=== PATIENT | male | born 1985 | race Caucasian/White ===

== ENCOUNTER 2017-12-15 13:17 | Emergency (ER) | payer SELFPAY ==
[2017-12-15] MEDS ORDERED: Proparacaine 0.5% Opth 15 ML BOT ONE (13:34)
[2017-12-15] MEDS ORDERED: Fluorescein Opthalmic Strip ONE (13:34)
== END 2017-12-15 14:23 | disposition home or self-care (01) ==
LOC: ERS 13:17
DX: S05.01XA Injury of conjunctiva and corneal abrasion without foreign body, right eye, initial encounter (principal); F17.210 Nicotine dependence, cigarettes, uncomplicated; X58.XXXA Exposure to other specified factors, initial encounter
CPT/HCPCS: 99406

== ENCOUNTER 2018-09-09 21:53 | Emergency (ER) | payer SELFPAY ==
[2018-09-09] MEDS ORDERED: Dexamethasone 4 mg/ml Vial ONE (22:45)
[2018-09-09] MEDS ORDERED: hydrOXYzine 25 MG TAB PO SCH (23:00)
== END 2018-09-09 23:10 | disposition home or self-care (01) ==
LOC: ERS 21:53
DX: L23.7 Allergic contact dermatitis due to plants, except food (principal); F17.210 Nicotine dependence, cigarettes, uncomplicated
CPT/HCPCS: 96372; J1100

== ENCOUNTER 2019-06-24 23:27 | Inpatient (IN) | payer SELFPAY ==
[2019-06-24] MEDS ORDERED: Midazolam HCl 5 mg/ml Vial ONE ×3 (23:33→23:48)
[2019-06-24] MEDS ORDERED: Haloperidol Lactate 5 MG/ML VIAL ONE (23:37)
[2019-06-24 23:50] LABS: #Basophils 0.1 thou/uL (0.0-0.2); #Eosinphils 0.2 thou/uL (0.0-0.7); #Neutrophils 8.3 thou/uL (1.40-6.50); %Basophils 0.4 % (0.0-1.0); %Eosinophils 1.8 % (0.0-10.0); %Lymphocytes 29.3 % (21.0-51.0); %Monocytes 7.5 % (0.0-10.0); Hemoglobin 15.2 g/dL (14.0-18.0); Mean Corpuscular HGB CONC 32.9 g/dL (32.0-36.0); Mean Corpuscular Hemoglobin 27.6 pg (27.0-31.0); Mean Platelet Volume 7.9 fL (7.4-10.4); Platelet Count 428 thou/uL (130-400); Red Blood Cell (RBC) Count 5.49 mill/uL (4.70-6.10); White Blood Cell (WBC) Count 13.6 thou/uL (4.8-10.8)
[2019-06-24] MEDS ORDERED: Midazolam HCl 2 mg/2 ml Vial ONE (23:56)
[2019-06-24 23:57] LABS: INR-International Normal Ratio 0.9; Prothrombin Time 11.8 SEC (12.0-14.7)
[2019-06-25 00:17] LABS: ALT (SGPT) 17 U/L (8-55); AST (SGOT) 17 U/L (5-34); Acetaminophen Less than 6.0 mcg/mL (10.0-30.0); Albumin 4.8 g/dL (3.5-5.0); Alcohol Less than 10 mg/dL (Less than 10); Alkaline Phosphatase 77 U/L (40-150); Anion Gap 17 mmol/L (10-20); BUN (Urea Nitrogen) 13 mg/dL (8.9-20.6); Bilirubin, Total 0.3 mg/dL (0.2-1.2); CK (CPK) 109 U/L (30-200); Calc. Creatinine Clearance 0 mL/min (70-130); Calcium 10.4 mg/dL (7.8-10.44); Carbon Dioxide 24 mmol/L (22-29); Chloride 103 mmol/L (98-107); Estimated GFR-MDRD 66; Globulin 3.4 g/dL (2.4-3.5); Glucose 104 mg/dL (70-105); Lipase 27 U/L (8-78); Potassium 4.3 mmol/L (3.5-5.1); Protein, Total 8.2 g/dL (6.0-8.3); Salicylate Less than 8.0 mg/dL (15.0-30.0); Sodium 140 mmol/L (136-145)
[2019-06-25 00:27] LABS: Bilirubin Negative (Negative); Blood, Urine Negative (Negative); Clarity Clear (Clear); Glucose, Urine (Dipstick) Normal (Negative); Leukocyte Negative Leu/uL (Negative); Nitrite Negative (Negative); Protein, Urine (Dipstick) Negative (Neg-Trace); Urobilinogen Normal mg/dL (Less than 2)
[2019-06-25] MEDS ORDERED: Midazolam HCl 2 mg/2 ml Vial ONE (00:55)
[2019-06-25] MEDS ORDERED: Midazolam HCl 5 mg/ml Vial ONE (01:19)
[2019-06-25] MEDS ORDERED: Senokot S 8.6-50 MG TAB PO PRN (01:20)
[2019-06-25] MEDS ORDERED: Acetaminophen 325 MG TAB PO PRN (01:20)
[2019-06-25] MEDS ORDERED: Lorazepam 2 MG/ML VIAL SLOW IVP PRN (01:42)
[2019-06-25] MEDS: Sodium Chloride 0.9% 1,000 ML IV SCH ×3 (03:32→14:57)
[2019-06-25 03:45] LABS: #Lymphocytes 1.5 thou/uL (1.20-3.40); #Monocytes 0.9 thou/uL (0.11-0.59); #Neutrophils 13.1 thou/uL (1.40-6.50); %Eosinophils 0.2 % (0.0-10.0); %Lymphocytes 9.5 % (21.0-51.0); %Monocytes 5.6 % (0.0-10.0); %Neutrophils 84.7 % (42.0-75.0); Mean Corpuscular HGB CONC 33.3 g/dL (32.0-36.0); Mean Corpuscular Hemoglobin 27.8 pg (27.0-31.0); Mean Corpuscular Volume 83.6 fL (78.0-98.0); Mean Platelet Volume 7.8 fL (7.4-10.4); Platelet Count 283 thou/uL (130-400); RBC Distribution Width 13.9 % (11.5-14.5); Red Blood Cell (RBC) Count 4.68 mill/uL (4.70-6.10); White Blood Cell (WBC) Count 15.5 thou/uL (4.8-10.8)
[2019-06-25 03:49] VITALS: BMI 24.5
[2019-06-25 03:59] LABS: Lactic Acid 1.2 mmol/L (0.5-2.2)
[2019-06-25 04:02] LABS: Anion Gap 11 mmol/L (10-20); BUN (Urea Nitrogen) 11 mg/dL (8.9-20.6); Calc. Creatinine Clearance 116 mL/min (70-130); Calcium 8.9 mg/dL (7.8-10.44); Carbon Dioxide 22 mmol/L (22-29); Chloride 109 mmol/L (98-107); Estimated GFR-MDRD 85; Glucose 113 mg/dL (70-105); Potassium 4.4 mmol/L (3.5-5.1); Sodium 138 mmol/L (136-145)
[2019-06-25 04:21] VITALS: BP 113/73
--- NOTE | 2019-06-25 04:59 | HP ---
CHIEF COMPLAINT: Aggressive behavior. HISTORY OF PRESENT ILLNESS: The patient is a 33-year-old male, who presents to the hospital, who was in custody of the police. However, prior to that, it seems per ER and per police, that he ingested about a gram of methamphetamine before his incarceration. At this time, he was acting very aggressive and he was brought into the hospital for further evaluation. The patient started shaking, having aggressive behavior at this time. He was given some Versed and also was given some Haldol, and also was found to be tachycardic with a lactic acid of 7. PAST MEDICAL HISTORY: Per records, there is no past medical history. PAST SURGICAL HISTORY: Unable to obtain. SOCIAL HISTORY: Unknown if he drinks alcohol or smokes; however, he is positive for drug use. REVIEW OF SYSTEMS: Unable to obtain. ALLERGIES: PER DOCUMENTATION, NO KNOWN DRUG ALLERGIES. MEDICATIONS: Unable to obtain. PHYSICAL EXAMINATION: VITAL SIGNS: Temperature of 98.8, respirations of 24, pulse of 120, blood pressure 130/98. GENERAL: He is sedated; however, does open his eyes on verbal command. He is moving all 4 extremities nonpurposefully. CV: S1 and S2 present. Tachycardia. No murmurs heard. LUNGS: Clear to auscultation. No rhonchi or wheezes noted. ABDOMEN: Soft. Bowel sounds are present x2. No pain elicited on palpation. SKIN: He has significant tattoo all over. NEUROVASCULAR: He is moving all 4 extremities. His pupils bilaterally are sluggish to reaction; however, he does talk when you ask him questions. LABORATORY RESULTS: EKG indicates sinus tach. His WBCs of 15.5, hemoglobin of 13.0, hematocrit of 39.1. His platelets are 283. Chemistry; sodium of 140, potassium of 4.3, his BUN is 13, creatinine of 1.26. His lactic acid was 7.3. Troponins negative. Magnesium was normal. His urine does indicate just ketones. Toxicology/UDS is pending. The plasma alcohol level is less than 10. ASSESSMENT AND PLAN: The patient is a 33-year-old male, who presents to the hospital after drug overdose. 1. Drug overdose, most likely methamphetamine. We will continue to monitor closely. We will start the patient on some IV hydration. We will give him p.r.n. Ativan as needed for any agitation, or Haldol. 2. Elevated lactic acidosis, most likely secondary to his ingestion. I will continue the IV hydration. Recheck his lactic acid. CK is normal. We will continue to monitor. 3. Deep venous thrombosis prophylaxis. We will put the patient on SCDs. Job ID: [id number]
[2019-06-25 05:48] LABS: Medtox Reader # READER 4
[2019-06-25 05:49] LABS: Amphetamine Detected (NotDetected); Barbiturates Screen Not Detected (NotDetected); Benzodiazepine Screen Not Detected (NotDetected); Cocaine Metabolite Screen Not Detected (NotDetected); Medtox Control Line Valid? VALID (VALID); Methadone Not Detected (NotDetected); Methamphetamine Not Detected (NotDetected); Opiate Screen Detected (NotDetected); Oxycodone Screen Not Detected (NotDetected); Phencyclidine (PCP) Not Detected (NotDetected); THC/Cannabinoid Screen Detected (NotDetected); Tricyclic Screen Not Detected (NotDetected)
--- NOTE | 2019-06-25 07:38 | RAD ---
KUB: Date: 06/25/19 INDICATION: History of ingesting a package of drugs. COMPARISON: None. FINDINGS: Bowel gas pattern is unobstructed. Radiopaque density overlies the lower pelvis likely external to th e patient. There is a Gibbons catheter in the region of the lower pelvis. Lung bases are clear. No acut e osseous abnormality is evident. IMPRESSION: 1. Radiopaque density overlying the lower aspect of the pelvis, likely external to the patient. 2. Bowel gas pattern is unobstructed. POS: BH
[2019-06-25] MEDS: Enoxaparin Sodium 40 MG/0.4 ML SYRINGE SC SCH (08:53)
[2019-06-25] MEDS ORDERED: Famotidine/PF 20 mg/2ml Vial SLOW IVP SCH (09:00)
--- NOTE | 2019-06-25 14:35 | PDOC.HOSPP ---
- Subjective Subjective: sleepy wakes up easily no sob or chest pain is calm and responds well to verbal questions - Objective Vital Signs & Weight: Vital Signs (12 hours) Temp Pulse Resp BP Pulse Ox 06/25/19 11:20 96.8 F L 06/25/19 07:32 97.6 F 06/25/19 04:00 98.5 F 06/25/19 03:15 98.5 F 106 H 27 H 113/73 99 Weight Weight 176 lb Most Recent Monitor Data Heart Rate from ECG 91 NIBP 135/78 NIBP BP-Mean 97 Respiration from ECG 25 SpO2 96 I&O: 06/24/19 06/25/19 06/26/19 06:59 06:59 06:59 Intake Total 499 Output Total 1250 Balance -751 Result Diagrams: 06/25/19 03:30 06/25/19 03:30 ROS - Review of Systems All systems: All other ROS were reviewed and found negative. - Medication Medications: Active Medications Generic Name Dose Route Start Last Admin Trade Name Freq PRN Reason Stop Dose Admin Enoxaparin Sodium 40 mg 06/25/19 09:00 06/25/19 08:53 Lovenox SC 40 mg 0900 JAMIE Administration - Exam NAD, awake alert Eye: PERRL, anicteric sclera ENT: normocephalic atraumatic, dry oral mucosa Neck: supple, no JVD Heart: RRR, no murmur Respiratory: CTAB, no rales Gastrointestinal: soft, non-tender, normal bowel sounds Extremities: no cyanosis, no clubbing (right forearm edema+) Neurological: CN's grossly intact, no focal deficits Musculoskeletal: normal tone, normal strength Hosp A/P (1) Polysubstance abuse Code(s): F19.10 - OTHER PSYCHOACTIVE SUBSTANCE ABUSE, UNCOMPLICATED Status: Acute (2) Agitation Status: Resolved (3) Dehydration Code(s): E86.0 - DEHYDRATION Status: Acute - Plan hemostable may dc sitter, is calm and responds well to verbal stimuli, I evaluated him around 9am. oral diet per staff pt is sleepy around 2 pm and has not had anything to eat will continue iv fluids once he wakes up fully, is oriented, ambulates with out limp, eats well, may dc home
[2019-06-26] MEDS: Sodium Chloride 0.9% 1,000 ML IV SCH (04:42)
[2019-06-26] MEDS: Enoxaparin Sodium 40 MG/0.4 ML SYRINGE SC SCH (09:28)
[2019-06-26] MEDS ORDERED: Ondansetron PF 4 MG/2 ML Vial SLOW IVP PRN (10:22)
[2019-06-26 14:14] LABS: #Lymphocytes 1.6 thou/uL (1.20-3.40); #Monocytes 0.7 thou/uL (0.11-0.59); %Basophils 0.1 % (0.0-1.0); %Eosinophils 0.6 % (0.0-10.0); %Lymphocytes 22.3 % (21.0-51.0); %Monocytes 8.8 % (0.0-10.0); %Neutrophils 68.2 % (42.0-75.0); Hemoglobin 13.6 g/dL (14.0-18.0); Mean Corpuscular Hemoglobin 27.8 pg (27.0-31.0); Mean Corpuscular Volume 84.2 fL (78.0-98.0); Mean Platelet Volume 7.6 fL (7.4-10.4); Platelet Count 274 thou/uL (130-400); RBC Distribution Width 13.9 % (11.5-14.5); White Blood Cell (WBC) Count 7.4 thou/uL (4.8-10.8)
[2019-06-26 14:35] LABS: ALT (SGPT) 24 U/L (8-55); AST (SGOT) 44 U/L (5-34); Alkaline Phosphatase 65 U/L (40-150); Anion Gap 8 mmol/L (10-20); BUN (Urea Nitrogen) 9 mg/dL (8.9-20.6); Bilirubin, Total 0.8 mg/dL (0.2-1.2); Calc. Creatinine Clearance 142 mL/min (70-130); Calcium 9.1 mg/dL (7.8-10.44); Carbon Dioxide 25 mmol/L (22-29); Chloride 106 mmol/L (98-107); Estimated GFR-MDRD Greater than 90; Globulin 2.7 g/dL (2.4-3.5); Glucose 100 mg/dL (70-105); Lipase 5 U/L (8-78); Potassium 3.9 mmol/L (3.5-5.1); Protein, Total 6.7 g/dL (6.0-8.3); Sodium 135 mmol/L (136-145)
--- NOTE | 2019-06-26 14:47 | PDOC.HOSPP ---
- Subjective Subjective: nausea+, no abd pain no chest pain, cough or diarrhea - Objective Vital Signs & Weight: Vital Signs (12 hours) Temp 06/26/19 10:40 97.5 F L 06/26/19 07:14 97.0 F L 06/26/19 03:57 99.7 F H Weight Weight 176 lb Most Recent Monitor Data Heart Rate from ECG 94 NIBP 132/67 NIBP BP-Mean 88 Respiration from ECG 18 SpO2 100 I&O: 06/25/19 06/26/19 06/27/19 06:59 06:59 06:59 Intake Total 2659 Output Total 2550 Balance 109 Result Diagrams: 06/26/19 14:04 06/26/19 14:04 ROS - Review of Systems All systems: All other ROS were reviewed and found negative. - Medication Medications: Active Medications Generic Name Dose Route Start Last Admin Trade Name Freq PRN Reason Stop Dose Admin Enoxaparin Sodium 40 mg 06/25/19 09:00 06/26/19 09:28 Lovenox SC 40 mg 0900 JAMIE Administration Sodium Chloride 1,000 mls @ 70 mls/hr 06/25/19 14:45 06/26/19 04:42 Normal Saline 0.9% IV 1,000 mls .[id number] JAMIE Administration Ondansetron HCl 4 mg 06/26/19 10:22 06/26/19 12:06 Zofran SLOW IVP 4 mg Q4H PRN Administration Nausea/Vomiting Pantoprazole Sodium 40 mg 06/26/19 09:00 06/26/19 09:28 Protonix PO 40 mg DAILY JAMIE Administration - Exam NAD, awake alert Eye: PERRL, anicteric sclera ENT: no oropharyngeal lesions, moist mucosa Neck: supple, symmetric, no JVD Heart: RRR, no murmur Respiratory: no wheezes, no rales Gastrointestinal: soft, non-tender, non-distended, normal bowel sounds Skin: normal turgor, no lesions Neurological: CN's grossly intact, no focal deficits Musculoskeletal: normal tone, normal strength Psychiatric: normal affect, A&O x 3 Hosp A/P (1) Polysubstance abuse Code(s): F19.10 - OTHER PSYCHOACTIVE SUBSTANCE ABUSE, UNCOMPLICATED Status: Acute (2) Agitation Status: Resolved (3) Dehydration Code(s): E86.0 - DEHYDRATION Status: Resolved - Plan hemostable labs look normal today dc pt home substance use rehab information
[2019-06-26 15:22] VITALS: TEMP 97.9
--- NOTE | 2019-06-27 11:27 | DIS ---
DATE OF ADMISSION: 06/25/2019 DATE OF DISCHARGE: 06/26/2019 DISCHARGE DISPOSITION: Home. PRIMARY DISCHARGE DIAGNOSES: Polysubstance abuse with agitation resolved and dehydration, resolved. PROCEDURES DONE DURING HOSPITALIZATION: Abdominal x-ray done on the day of admission showed nonobstructed bowel gas pattern. White count of 15 with discharge white count of 7.4, likely due to dehydration. Discharge BUN and creatinine are 9 and 0.8. Initial BUN and creatinine 13 and 1.26. One set of troponin was negative. Urine drug screen was positive for amphetamines, cannabinoids, and opiates. ALLERGIES: NO KNOWN DRUG ALLERGIES. DISCHARGE DATA: None. BRIEF COURSE DURING HOSPITALIZATION: The patient initially was brought by police, as he was agitated while in custody. He was given multiple psychotropic agents to calm him down in the ER. He was eventually admitted to [facility] for possible polysubstance abuse for close monitoring. His urine drug screen was positive for amphetamine, marijuana, and opiates. He was also severely dehydrated and was aggressively hydrated during his stay here. Prior to discharge, he is ambulating and eating well. He was counseled with regard to substance abuse and local resources for drug rehab was provided to him prior to discharge. He is hemodynamically stable otherwise. Please note, I have seen and examined the patient on the day of discharge. Job ID: [id number] [facility]
--- NOTE | 2019-06-28 01:38 | PQF ---
[employer] Service Technician Crystal Reports Winform ViewerObaniRamu murphy ELLEN SHRESTHA MD [id number] CLINICAL DOCUMENTATION CLARIFICATION FORM: POST DISCHARGE Addendum to original discharge summary date: ____ Late entry note date: __ DATE: 06/28/2019 ATTN: ELLEN SHRESTHA MD Please exercise your independent, professional judgment in responding to the clarification form. Clinical indicators are provided on the bottom of this form for your review Please check appropriate box(s): Conflicting documentation was noted in the Medical Record, please clarify if patient is being treated/monitored for: [ ] Drug Overdose most likely Methamphetamine [ x ] Polysubstance Abuse [ x ] Other diagnosis _agitation secondary to substance use [ ] Unable to determine For continuity of documentation, please document condition throughout progress notes and discharge summary. Thank You. CLINICAL INDICATORS - SIGNS / SYMPTOMS/ LABS He ingested about gram of Methamphetamine before his incarceration - Documented in H&P on 06/25/19 by Reba Layton MD Patient started shaking, Having aggressive behavior at this time - Documented in H&P on 06/25/19 by Reba Layton MD Elevated lactic acidosis most likely secondary to his ingestion - Documented in H&P on 06/25/19 by Reba Layton MD His urine does indicates just ketones -Documented in H&P on 06/25/19 by Reba Layton MD Polysubstance abuse with agitation - Documented in Discharge summary on by ELLEN SHRESTHA MD Urine drug screen was positive for amphetamines, cannabinoids and opiates - Documented in Discharge summary on 06/26/19 by ELLEN SHRESTHA MD [employer] severely dehydrated - Documented in Discharge summary on 06/26/19 by ELLEN SHRESTHA MD found tachycardiac with lactic acid of 7 - Documented in H&P on 06/25/19 by Reba Layton MD Social history -he is positive for drug use - Documented in H&P on 06/25/19 by Reba Layton MD TREATMENT We will continue to monitor closely, we will start the patient on some IV hydration. - Documented in H&P on 06/25/19 by Reba Layton MD He was counseled with regard to substance abuse and local resources for drug rehab - Documented in Discharge summary on 06/26/19 by ELLEN SHRESTHA MD We will given him p.r.n Ativan - Documented in H&P on 06/25/19 by Reba Layton MD (This form is maintained as a part of the permanent medical record) 2014 [employer]. All Rights Reserved [email or web address] [not provided] MTDD
== END 2019-06-26 16:44 | disposition home or self-care (01) | DRG 897 ==
LOC: ERS 23:27 → IMCU/EMU 06-25 02:28
PROVIDERS: ADMIT Internal Medicine; ATTEND Internal Medicine
DX: F15.188 Other stimulant abuse with other stimulant-induced disorder (principal); E87.2 Acidosis; E86.0 Dehydration; F17.210 Nicotine dependence, cigarettes, uncomplicated; R45.1 Restlessness and agitation; F12.188 Cannabis abuse with other cannabis-induced disorder; F11.188 Opioid abuse with other opioid-induced disorder
CPT/HCPCS: 36415; 74018; 80048; 80053; 80306; 80307; 81003; 82550; 83605; 83690; 83735; 84484; 85025; 85610; 93005; J1630; J1650; J2250; J2405; S0028

== ENCOUNTER 2019-08-09 19:01 | Emergency (ER) | payer SELFPAY ==
[2019-08-09] MEDS ORDERED: Ondansetron PF 4 MG/2 ML Vial ONE (19:09)
[2019-08-09 19:31] LABS: #Basophils 0.1 thou/uL (0.0-0.2); #Eosinphils 0.3 thou/uL (0.0-0.7); #Lymphocytes 1.8 thou/uL (1.20-3.40); #Monocytes 0.9 thou/uL (0.11-0.59); #Neutrophils 4.9 thou/uL (1.40-6.50); %Eosinophils 4.1 % (0.0-10.0); %Lymphocytes 22.5 % (21.0-51.0); %Monocytes 11.4 % (0.0-10.0); Hemoglobin 12.4 g/dL (14.0-18.0); Mean Corpuscular HGB CONC 32.4 g/dL (32.0-36.0); Mean Corpuscular Hemoglobin 27.9 pg (27.0-31.0); Mean Corpuscular Volume 86.1 fL (78.0-98.0); Mean Platelet Volume 7.6 fL (7.4-10.4); Platelet Count 334 thou/uL (130-400); RBC Distribution Width 13.7 % (11.5-14.5); Red Blood Cell (RBC) Count 4.44 mill/uL (4.70-6.10)
[2019-08-09 19:51] LABS: ALT (SGPT) 13 U/L (8-55); AST (SGOT) 15 U/L (5-34); Albumin 3.9 g/dL (3.5-5.0); Alkaline Phosphatase 49 U/L (40-150); Anion Gap 8 mmol/L (10-20); BUN (Urea Nitrogen) 11 mg/dL (8.9-20.6); Bilirubin, Total 0.4 mg/dL (0.2-1.2); CK (CPK) 240 U/L (30-200); Calc. Creatinine Clearance 0 mL/min (70-130); Carbon Dioxide 26 mmol/L (22-29); Chloride 108 mmol/L (98-107); Estimated GFR-MDRD Greater than 90; Globulin 2.2 g/dL (2.4-3.5); Glucose 102 mg/dL (70-105); Potassium 3.4 mmol/L (3.5-5.1); Protein, Total 6.1 g/dL (6.0-8.3); Sodium 139 mmol/L (136-145)
--- NOTE | 2019-08-12 15:27 | EKG ---
Test Reason : Blood Pressure : / mmHG Vent. Rate : 095 BPM Atrial Rate : 095 BPM P-R Int : 134 ms QRS Dur : 084 ms QT Int : 348 ms P-R-T Axes : 061 028 057 degrees QTc Int : 437 ms Normal sinus rhythm Normal ECG Confirmed by DURGA JEFFERS, NORTH ([id number]), television news video editor SOFIA GARCIA ([id number]) on 08/12/2019 3:27:11 PM Referred By: Confirmed By:NORTH CALIXTO MD
== END 2019-08-09 20:25 ==
LOC: ERS 19:01
DX: T43.621A Poisoning by amphetamines, accidental (unintentional), initial encounter (principal); F17.210 Nicotine dependence, cigarettes, uncomplicated
CPT/HCPCS: 36415; 80053; 82550; 85025; 93005; 96361; 96374; J2405

== ENCOUNTER 2019-08-28 23:42 | Emergency (ER) | payer SELFPAY ==
[2019-08-29 00:09] LABS: #Basophils 0.1 thou/uL (0.0-0.2); #Eosinphils 0.1 thou/uL (0.0-0.7); #Lymphocytes 2.6 thou/uL (1.20-3.40); #Monocytes 1.4 thou/uL (0.11-0.59); #Neutrophils 7.1 thou/uL (1.40-6.50); %Basophils 0.9 % (0.0-1.0); %Eosinophils 1.2 % (0.0-10.0); %Lymphocytes 23.1 % (21.0-51.0); %Monocytes 12.4 % (0.0-10.0); %Neutrophils 62.4 % (42.0-75.0); Hemoglobin 14.6 g/dL (14.0-18.0); Mean Corpuscular HGB CONC 33.7 g/dL (32.0-36.0); Mean Corpuscular Hemoglobin 28.3 pg (27.0-31.0); Mean Corpuscular Volume 83.8 fL (78.0-98.0); Platelet Count 352 thou/uL (130-400); RBC Distribution Width 13.1 % (11.5-14.5); Red Blood Cell (RBC) Count 5.16 mill/uL (4.70-6.10); White Blood Cell (WBC) Count 11.3 thou/uL (4.8-10.8)
[2019-08-29 00:30] LABS: ALT (SGPT) 24 U/L (8-55); AST (SGOT) 27 U/L (5-34); Albumin 5.1 g/dL (3.5-5.0); Alkaline Phosphatase 61 U/L (40-110); Anion Gap 19 mmol/L (10-20); BUN (Urea Nitrogen) 36 mg/dL (8.9-20.6); Bilirubin, Total 1.5 mg/dL (0.2-1.2); CK (CPK) 439 U/L (30-200); Calc. Creatinine Clearance 0 mL/min (70-130); Calcium 10.1 mg/dL (7.8-10.44); Carbon Dioxide 23 mmol/L (22-29); Chloride 94 mmol/L (98-107); Estimated GFR-MDRD 57; Globulin 3.4 g/dL (2.4-3.5); Glucose 102 mg/dL (70-105); Potassium 3.1 mmol/L (3.5-5.1); Protein, Total 8.5 g/dL (6.0-8.3); Sodium 133 mmol/L (136-145)
--- NOTE | 2019-08-29 00:33 | RAD ---
RADIOGRAPH CHEST 1 VIEW: DATE: 08/29/2019 HISTORY: 33-year-old male with acute chest pain FINDINGS: There are no airspace densities, pulmonary edema, pneumothorax, or cardiomegaly. The lateral costophr enic angles are sharp. IMPRESSION: No acute cardiopulmonary findings.
--- NOTE | 2019-09-02 13:57 | EKG ---
Test Reason : CP Blood Pressure : / mmHG Vent. Rate : 111 BPM Atrial Rate : 111 BPM P-R Int : 124 ms QRS Dur : 088 ms QT Int : 348 ms P-R-T Axes : 069 059 068 degrees QTc Int : 473 ms Sinus tachycardia Possible Left atrial enlargement Borderline ECG Confirmed by ENGAR CARRINGTON DO ([id number]), features editor MARIE MERRITT ([id number]) on 09/02/2019 1:56:43 PM Referred By: CHARISSA Confirmed By:NEGAR CARRINGTON DO
== END 2019-08-29 00:24 | disposition left against medical advice (07) ==
LOC: ERS 23:42
DX: R07.2 Precordial pain (principal); R06.02 Shortness of breath; F17.210 Nicotine dependence, cigarettes, uncomplicated
CPT/HCPCS: 71045; 80053; 82550; 84443; 84484; 85025; 85379; 93005